=== PATIENT | male | born 1960 | race Hispanic/Latino ===

== ENCOUNTER 2018-01-14 11:46 | Outpatient (CLI) | payer MEDICARE ==
--- NOTE | 2018-01-14 13:26 | XRay Report ---
LUMBOSACRAL SPINE, 3 VIEWS: History: Arthritis Findings: There is normal height and alignment of the vertebral bodies. No compression deformity or bone lesion. Mild degenerative disc disease and facet arthropathy are identified at all levels. The sacrum and SI joints are unremarkable. Impression: Mild multilevel lumbar spondylosis. No acute process identified.
== END 2018-01-14 11:47 | disposition home or self-care (01) ==
LOC: XRAY 11:46
PROVIDERS: ATTEND Psychiatry & Neurology Neurology
DX: M47.896 Other spondylosis, lumbar region (principal); M12.88 Other specific arthropathies, not elsewhere classified, other specified site; M51.37 Other intervertebral disc degeneration, lumbosacral region
CPT/HCPCS: 72100